=== PATIENT | male | born 1940 | race Caucasian/White ===

== ENCOUNTER 2016-12-15 18:20 | Inpatient (IN) | payer MEDICARE, OTHER ==
[~2016-12-15] VITALS: Ht 177.8 cm; Wt 96.2 kg
[2016-12-15 19:18] LABS: HEMOGLOBIN 13.7 gm/dl (14.0-17.5); RED BLOOD COUNT 4.42 M/UL (4.20-5.50)
[2016-12-15 19:23] LABS: WHITE BLOOD COUNT 9.2 K/UL (4.5-11.0)
[2016-12-16] MEDS ORDERED: HYDRALAZINE HCL25 MG PO (00:50)
[2016-12-16] MEDS ORDERED: AMARYL 2MG TABLE2 MG PO (00:51)
[2016-12-16] MEDS ORDERED: COZAAR100 MG PO (00:51)
[2016-12-16] MEDS ORDERED: CLARITIN 10MG T10 MG PO (00:52)
[2016-12-16] MEDS ORDERED: PROTONIX40 MG PO (00:52)
[2016-12-16] MEDS ORDERED: CRESTOR10 MG PO (00:53)
[2016-12-16 05:29] LABS: WHITE BLOOD COUNT 11.5 K/UL (4.5-11.0)
[2016-12-16 05:30] LABS: RED BLOOD COUNT 3.91 M/UL (4.20-5.50)
[2016-12-17 04:20] LABS: HEMOGLOBIN 12.3 gm/dl (14.0-17.5); RED BLOOD COUNT 4.01 M/UL (4.20-5.50)
[2016-12-17 04:23] LABS: WHITE BLOOD COUNT 6.3 K/UL (4.5-11.0)
[2016-12-18 06:07] LABS: HEMOGLOBIN 12.4 gm/dl (14.0-17.5); RED BLOOD COUNT 4.06 M/UL (4.20-5.50)
[2016-12-18 06:14] LABS: WHITE BLOOD COUNT 9.7 K/UL (4.5-11.0)
[2016-12-19 06:04] LABS: HEMOGLOBIN 12.6 gm/dl (14.0-17.5); RED BLOOD COUNT 4.16 M/UL (4.20-5.50); WHITE BLOOD COUNT 9.3 K/UL (4.5-11.0)
[2016-12-19 06:29] LABS: BUN/CREATININE RATIO 15 (0-10)
[2016-12-20] MEDS ORDERED: FIBERCON625 MG PO (12:27)
[2016-12-20] MEDS ORDERED: PROCTOFOAM 15 G15 GM PR (12:34)
[2016-12-20] MEDS ORDERED: SENOKOT-S TABL1 EACH PO (12:35)
[2016-12-20] MEDS ORDERED: LEVAQUIN500 MG PO (12:54)
== END 2016-12-20 14:09 | disposition home or self-care (01) | DRG 348 ==
LOC: ER1 18:20 → ZEROF 20:00 → M/S 20:00
PROVIDERS: Hospitalist; Internal Medicine; Radiology Radiation Oncology; Surgery; ADMIT Internal Medicine
PROC: 06BY0ZC Excision of Hemorrhoidal Plexus, Open Approach (ICD-10-PCS; principal; 2016-12-17 13:44)
DX: K64.5 Perianal venous thrombosis (principal); N41.0 Acute prostatitis; E87.2 Acidosis; N17.9 Acute kidney failure, unspecified; I12.9 Hypertensive chronic kidney disease with stage 1 through stage 4 chronic kidney disease, or unspecified chronic kidney disease; E11.22 Type 2 diabetes mellitus with diabetic chronic kidney disease; N18.3 Chronic kidney disease, stage 3 (moderate); Z87.442 Personal history of urinary calculi
CPT/HCPCS: 36415; 71010; 71020; 80048; 80053; 81001; 82962; 83605; 83735; 84153; 85025; 85027; 85610; 85730; 86140; 86803; 87040; 87077; 87086; 87186; 87390; 96361; 96365; 96375; 99283; 99285; J0696; J1956; J2405; J2543; J7030; J7050; J7120